=== PATIENT | male | born 1980 | race Caucasian/White ===

== ENCOUNTER → 2016-08-27 | Emergency (ER) | payer OTHER ==
--- NOTE | 2016-08-27 18:31 | EDPHY ---
H & P Stated Complaint: White bump on penis, sore in mouth. Reports unprotected sex 1 mon. ago Time Seen by Provider: 08/27/16 18:30 - Personal History Current Tetanus Diphtheria and Acellular Pertussis (TDAP): Yes Tetanus Vaccine Date: within 10 years - Medical/Surgical History Hx Asthma: No Hx Chronic Respiratory Disease: No Hx Diabetes: No Hx Cardiac Disease: No Hx Renal Disease: No Hx Cirrhosis: No Hx Alcoholism: No Hx HIV/AIDS: No Hx Splenectomy or Spleen Trauma: No Other PMH: colon cancer, colon resection, liver resection, lung resection - Social History Smoking Status: Never smoked Constitutional: Initial Vital Signs Temperature (C) 36.8 C 08/27/16 18:08 Heart Rate 90 08/27/16 18:08 Respiratory Rate 18 08/27/16 18:08 Blood Pressure 144/91 H 08/27/16 18:08 O2 Sat (%) 96 08/27/16 18:08 O2 Delivery Mode Room Air Allergies/Adverse Reactions: No Known Allergies Allergy (Verified 08/27/16 18:16) Home Medications: Medication Instructions Recorded NK [No Known Home Meds] 08/27/16 Medical Decision Making ED Course/Re-evaluation: CHIEF COMPLAINT: Patient wants STD check HISTORY OF PRESENT ILLNESS: This patient is a healthy 36 year old male complaining of bumps on and around his penis noted this morning, and a canker sore on his mouth. He reports engaging in unprotected sex about one month ago. He noted the bumps this morning , but states they are not painful. He reports negative STI testing prior to this event. He denies evidence of systemic infection including fever, chills, nausea, or other associated symptoms. REVIEW OF SYSTEMS: A 10 point review of systems was performed and is negative with the exception of the elements mentioned in the history of present illness. PHYSICAL EXAM: HR, BP, O2 Sat, RR. Temp noted General Appearance: Alert, well hydrated, appropriate, and non-toxic appearing. Head: Atraumatic without scalp tenderness or obvious injury Eyes: Pupils equal, round, reactive to light and accommodation, EOMI, no trauma , no injection. Ears: Clear bilaterally, no perforation, normal landmarks Nose: Atraumatic, no rhinorrhea, clear. Throat: There is no erythema or exudates, no lesions, normal tonsils, mucus membranes moist. Neck: Supple, 2+ carotid upstroke, nontender, no lymphadenopathy. Respiratory: No retractions, no distress, no wheezes, and no accessory muscle use. Lungs are clear to auscultation bilaterally. Cardiovascular: Regular rate and rhythm, no murmurs, rubs, or gallops. Bilateral carotid, radial, dorsalis pedis, and posterior tibial pulses intact. Good capillary refill all extremities. Gastrointestinal: Abdomen is soft, nontender, non-distended, no masses, no rebound, no guarding, no peritoneal signs. Genitourinary: Normal appearing penis and scrotum with no obvious lesions. Musculoskeletal: Normal active ROM of all extremities, atraumatic. Neurological: Alert, appropriate, and interactive. The patient has normal DTRs and non-focal cranial nerves, motor, sensory, and cerebellar exam. Skin: No rashes, good turgor, no nodules on palpation. Past medical history: Denies Past surgical history:Unknown Family history: Unknown Social history: . PCP Dr Josephine Shabazz. DIFFERENTIAL DIAGNOSIS: Including but not limited to: sexually transmitted infection vs no infection. MEDICAL DECISION MAKING: This patient is a healthy 45 year old male who engaged in unprotected sex about one month ago, and noted small bumps to the underside of his penis this morning. The bumps appear unremarkable on exam, and have likely been present for some time. He does not appear systemically ill. We have run tests for sexually transmitted infections, and he will follow up with his primary care doctor for results of the testing. He has been encouraged to practice safe sex in the future. - Data Points Laboratory Results: 08/27/16 08/27/16 18:14 18:14 Urine RBC NONE SEEN /hpf /hpf (0-3) Urine WBC 1-3 /hpf /hpf (0-3) Ur Epithelial Cells 1+ /lpf /lpf (NONE-1+) Urine Bacteria 1+ /hpf H /hpf (NONE SEEN) Urine Mucus 3+ /lpf H /lpf (NONE-1+) Urine Sperm 3+ /hpf H /hpf (NONE SEEN) C.trachomatis RNA (TMA) Pending N.gonorrhoeae RNA (TMA) Pending Departure - Departure Disposition: Home, Routine, Self-Care Clinical Impression: Penile lesion Condition: Good Instructions: Condom Use (ED), Safe Sex (ED) Additional Instructions: 1. Follow up with your primary care doctor for symptoms unresolved in 5-7 days, and for results of your testing. 2. Return to the ED for fever, chills, nausea, vomiting, redness or discharge, or other worsening of condition. Referrals: Josephine Shabazz MD [Primary Care Provider] - As per Instructions Report Scribed for: Lawrence Fonseca Report Scribed by: Machelle Rubio Date of Report: 08/27/16 Time of Report: 19:17
[2016-08-27 18:44] VITALS: BP 144/91; PULSE 90; RESP 18; TEMP 98.2; O2SAT 96
[2016-08-27 19:11] LABS: BACTERIA 1+ /hpf (NONE SEEN); MUCUS 3+ /lpf (NONE-1+); RBC,URINE NONE SEEN /hpf (0-3)
[2016-08-30 12:48] LABS: CHLAMYDIA AMPLIFICATION GENPRB EQUIVOCAL (NEGATIVE)
[2016-08-30 21:46] LABS: HSV 1/2 IGM IFA Negative (Negative)
[2016-08-31 07:30] LABS: HSV1 IGG ANTIBODY Negative (Negative); HSV2 IGG ANTIBODY Negative (Negative)
== END | disposition home or self-care (01) ==
LOC: CED 18:06
DX: N50.89 Other specified disorders of the male genital organs (principal); Z85.038 Personal history of other malignant neoplasm of large intestine
CPT/HCPCS: 81015-PO; 86694-90